=== PATIENT | female | born 1960 | race Caucasian/White ===

== ENCOUNTER → 2017-11-13 | Outpatient (CLI) | payer MEDICARE, OTHER ==
[~2017-11-13] MED LIST: CYCL10 PO; FLUO20 PO; FLUOXETINE HCL60 MG PO; LORA1 PO; NAPR500 PO; RXLORA1 PO; TELM20 PO; TRAM50 PO; ZESTORETIC 20-121 EA; [UNRECOGNIZED DRUG - REMARK]
[2017-11-14 14:06] LABS: Candida species (DNA Probe) Negative (NEGATIVE); G. vaginalis (DNA Probe) Positive (NEGATIVE); T. vaginalis (DNA Probe) Negative (NEGATIVE)
[2017-11-16 13:21] LABS: HPV Genotype 16 Not Detected (NOTDET); HPV Genotype 18 Not Detected (NOTDET)
[2017-11-25 12:24] LABS: HPV High Risk Other Not Detected (NOTDET)
== END ==
LOC: LAB SHORT 15:33 → LAB 15:33
PROVIDERS: Nurse Practitioner Family
DX: Z01.419 Encounter for gynecological examination (general) (routine) without abnormal findings (principal); N76.0 Acute vaginitis; N95.9 Unspecified menopausal and perimenopausal disorder
CPT/HCPCS: 87480; 87510; 87660

== ENCOUNTER → 2017-12-13 | Outpatient (CLI) | payer MEDICARE, OTHER ==
[2017-12-19 15:09] LABS: ANA DIRECT Positive (Negative); ANTI-CENTROMERE B ANTIBODIES <0.2 AI (0.0-0.9); ANTI-DNA (DS) AB QN 1 IU/mL (0-9); ANTI-JO-1 <0.2 AI (0.0-0.9); ANTICHROMATIN ANTIBODIES <0.2 AI (0.0-0.9); ANTIMYELOPEROXIDASE (MPO) ABS <9.0 U/mL (0.0-9.0); ANTIPROTEINASE 3 (PR-3) ABS <3.5 U/mL (0.0-3.5); ANTIRIBOSOMAL P ANTIBODIES <0.2 AI (0.0-0.9); ANTISCLERODERMA-70 ANTIBODIES <0.2 AI (0.0-0.9); ATYPICAL PANCA <1:20 titer (Neg:<1:20); CYTOPLASMIC (C-ANCA) <1:20 titer (Neg:<1:20); PERINUCLEAR (P-ANCA) <1:20 titer (Neg:<1:20); RNP ANTIBODIES 1.1 AI (0.0-0.9); SJOGREN'S ANTI-SS-A <0.2 AI (0.0-0.9); SJOGREN'S ANTI-SS-B <0.2 AI (0.0-0.9); SMITH ANTIBODIES <0.2 AI (0.0-0.9); SMITH/RNP ANTIBODIES <0.2 AI (0.0-0.9)
== END | disposition home or self-care (01) ==
LOC: LAB SHORT 15:35 → LAB 16:04
PROVIDERS: Internal Medicine
DX: N17.9 Acute kidney failure, unspecified (principal)
CPT/HCPCS: 83516; 86038; 86256

== ENCOUNTER → 2017-12-28 | Outpatient (CLI) | payer MEDICARE, OTHER ==
[2017-12-28 18:54] LABS: Albumin, Blood 3.5 g/dL (3.4-5.0); Anion Gap 10 mmol/L (6-16); Blood Urea Nitrogen 12 mg/dL (8-24); Bun/Creatinine Ratio 16.5 (12.0-20.0); CO2, Blood 20 mmol/L (21-32); Calcium, Blood 8.6 mg/dL (8.5-10.1); Chloride, Blood 108 mmol/L (98-108); Creatinine, Blood 0.73 mg/dL (0.40-1.00); Glomerular Filtration Rate >60 (60-); Glucose, Blood 63 mg/dL (70-99); Magnesium, Blood 2.1 mg/dL (1.6-2.4); Phosphorus, Blood 3.1 mg/dL (2.5-4.9); Potassium, Blood 3.9 mmol/L (3.5-5.5); Sodium, Blood 138 mmol/L (136-145)
== END | disposition home or self-care (01) ==
LOC: OLS 16:50 → LAB SHORT 16:50
PROVIDERS: Internal Medicine
DX: E87.6 Hypokalemia (principal); E61.2 Magnesium deficiency; R94.4 Abnormal results of kidney function studies
CPT/HCPCS: 36415; 80069; 83735

== ENCOUNTER → 2018-09-06 | Outpatient (CLI) | payer MEDICARE, OTHER ==
[~2018-09-06] MED LIST changes: +Pepcid40 MG PO; +TOPIRAMATE ER50 MG PO; +Zofran4 MG PO
[2018-09-06 17:32] LABS: BASOPHILS PERCENT AUTO 0 % (0-2); EOSINOPHILS ABSOLUTE AUTO 0.26 K/mm3 (0.00-0.68); EOSINOPHILS PERCENT AUTO 4 % (0-6); Hematocrit 43.7 % (33.0-51.0); IMMATURE GRAN ABSOLUTE AUTO 0.01 K/mm3 (0.00-0.10); IMMATURE GRAN PERCENT AUTO 0 % (0-1); LYMPHOCYTES ABSOLUTE AUTO 3.07 K/mm3 (0.84-5.20); LYMPHOCYTES PERCENT AUTO 50 % (21-46); MONOCYTES ABSOLUTE AUTO 0.36 K/mm3 (0.16-1.47); MONOCYTES PERCENT AUTO 6 % (4-13); Mean Corpuscular HGB 34.5 pg (26.0-34.0); Mean Corpuscular HGB Conc 34.3 g/dL (31.5-36.5); Mean Corpuscular Volume 101 fL (80-100); Mean Platelet Volume 11.1 fL (9.1-12.4); NEUTROPHILS ABSOLUTE AUTO 2.48 K/mm3 (1.96-9.15); NEUTROPHILS PERCENT AUTO 40 % (41-73); Platelet Count 209 K/mm3 (150-400); RDW Coefficient Variation 13.1 % (11.7-14.2); Red Blood Cell Count 4.35 M/mm3 (3.80-5.20); White Blood Cell Count 6.18 K/mm3 (4.00-11.30)
[2018-09-06 17:47] LABS: Alanine Aminotransfer (ALT/SGP 34 U/L (12-78); Albumin, Blood 3.7 g/dL (3.4-5.0); Albumin/Globulin Ratio 0.9 (0.8-1.8); Alk Phos 114 U/L (40-126); Anion Gap 14 mmol/L (6-16); Aspartate Aminotrans (AST/SGOT 22 U/L (12-37); Bilirubin, Total 0.2 mg/dL (0.1-1.0); Blood Urea Nitrogen 11 mg/dL (8-24); Bun/Creatinine Ratio 16.4 (12.0-20.0); CO2, Blood 23 mmol/L (21-32); Calcium, Blood 8.9 mg/dL (8.5-10.1); Chloride, Blood 105 mmol/L (98-108); Creatinine, Blood 0.67 mg/dL (0.40-1.00); Globulin, Blood 3.9 g/dL (2.2-4.0); Glomerular Filtration Rate >60 (60-); Glucose, Blood 93 mg/dL (70-99); Potassium, Blood 3.9 mmol/L (3.5-5.5); Sodium, Blood 142 mmol/L (136-145); Total Protein, Blood 7.6 g/dL (6.4-8.2)
== END | disposition home or self-care (01) ==
LOC: LAB EV 17:28 → LAB SHORT 17:28
PROVIDERS: Family Medicine
DX: R10.9 Unspecified abdominal pain (principal)
CPT/HCPCS: 80053; 83690; 85025

== ENCOUNTER 2018-09-08 05:53 | Emergency (ER) | payer MEDICARE, OTHER ==
[~2018-09-08] VITALS: Ht 154.9 cm; Wt 72.1 kg
[~2018-09-08 05:53] MED LIST changes: -Pepcid40 MG PO; -TOPIRAMATE ER50 MG PO; -Zofran4 MG PO
[2018-09-08] MEDS ORDERED: TOPIRAMATE ER50 MG PO (06:24)
[2018-09-08 07:14] LABS: BASOPHILS PERCENT AUTO 0 % (0-2); EOSINOPHILS ABSOLUTE AUTO 0.38 K/mm3 (0.00-0.68); EOSINOPHILS PERCENT AUTO 6 % (0-6); Hematocrit 45.3 % (33.0-51.0); Hemoglobin 15.1 g/dL (11.5-16.0); IMMATURE GRAN ABSOLUTE AUTO 0.01 K/mm3 (0.00-0.10); IMMATURE GRAN PERCENT AUTO 0 % (0-1); LYMPHOCYTES ABSOLUTE AUTO 3.02 K/mm3 (0.84-5.20); LYMPHOCYTES PERCENT AUTO 44 % (21-46); MONOCYTES ABSOLUTE AUTO 0.43 K/mm3 (0.16-1.47); MONOCYTES PERCENT AUTO 6 % (4-13); Mean Corpuscular HGB 33.9 pg (26.0-34.0); Mean Corpuscular HGB Conc 33.3 g/dL (31.5-36.5); Mean Corpuscular Volume 102 fL (80-100); Mean Platelet Volume 11.1 fL (9.1-12.4); NEUTROPHILS ABSOLUTE AUTO 3.07 K/mm3 (1.96-9.15); NEUTROPHILS PERCENT AUTO 45 % (41-73); Platelet Count 208 K/mm3 (150-400); RDW Coefficient Variation 13.2 % (11.7-14.2); RDW Standard Deviation 49.7 fL (35.1-46.3); Red Blood Cell Count 4.45 M/mm3 (3.80-5.20); White Blood Cell Count 6.91 K/mm3 (4.00-11.30)
[2018-09-08 07:22] LABS: Bilirubin, Urine Neg (Neg); Blood, Urine Neg (Neg); Glucose Qualitative, Urine Neg (Neg); Ketones, Urine Neg (Neg); Leukocyte Esterase, Urine Neg (Neg); Nitrite, Urine Neg (Neg); Protein, Urine Neg (Neg); Urobilinogen, Urine NORM (Normal)
[2018-09-08 07:28] LABS: Appearance, Urine Clear (Clear); Color, Urine Yellow (P-Yellow)
[2018-09-08 07:34] LABS: Alanine Aminotransfer (ALT/SGP 30 U/L (12-78); Albumin, Blood 3.8 g/dL (3.4-5.0); Alk Phos 116 U/L (50-136); Anion Gap 7 mmol/L (6-16); Aspartate Aminotrans (AST/SGOT 17 U/L (12-37); Bilirubin, Total 0.4 mg/dL (0.1-1.0); Blood Urea Nitrogen 15 mg/dL (8-24); Bun/Creatinine Ratio 21.6 (12.0-20.0); CO2, Blood 24 mmol/L (21-32); Calcium, Blood 8.5 mg/dL (8.5-10.1); Chloride, Blood 107 mmol/L (98-108); Creatinine, Blood 0.69 mg/dL (0.40-1.00); Globulin, Blood 3.9 g/dL (2.2-4.0); Glomerular Filtration Rate >60 (60-); Glucose, Blood 98 mg/dL (70-99); Potassium, Blood 3.6 mmol/L (3.5-5.5); Sodium, Blood 138 mmol/L (136-145); Total Protein, Blood 7.7 g/dL (6.4-8.2); Troponin I <0.015 ng/mL (0.000-0.040)
[2018-09-08] MEDS ORDERED: Pepcid40 MG PO (08:35)
[2018-09-08] MEDS ORDERED: Zofran4 MG PO (08:35)
== END 2018-09-08 08:50 | disposition home or self-care (01) ==
LOC: ER 05:53
PROVIDERS: Emergency Medicine
DX: K27.9 Peptic ulcer, site unspecified, unspecified as acute or chronic, without hemorrhage or perforation (principal); F17.210 Nicotine dependence, cigarettes, uncomplicated; R10.12 Left upper quadrant pain; Z79.899 Other long term (current) drug therapy
CPT/HCPCS: 36415; 80053; 81003; 83690; 84484; 85025; 93005; 93010; 96360; 99283-25; J7030

== ENCOUNTER → 2018-10-02 | Outpatient (CLI) | payer MEDICARE, OTHER ==
[~2018-10-02] MED LIST changes: +Pepcid40 MG PO; +TOPIRAMATE ER50 MG PO; +Zofran4 MG PO
== END | disposition home or self-care (01) ==
LOC: LAB EV 11:50 → LAB SHORT 11:50
DX: R53.83 Other fatigue (principal)
CPT/HCPCS: 84443

== ENCOUNTER 2021-08-24 22:42 | Emergency (ER) | payer MEDICARE, OTHER ==
[~2021-08-24] VITALS: Ht 154.9 cm; Wt 74.8 kg
[2021-08-24 23:05] LABS: BASOPHILS ABSOLUTE AUTO 0.04 K/mm3 (0.00-0.23); BASOPHILS PERCENT AUTO 0 % (0-2); EOSINOPHILS ABSOLUTE AUTO 0.31 K/mm3 (0.00-0.68); EOSINOPHILS PERCENT AUTO 3 % (0-6); Hematocrit 46.5 % (33.0-51.0); Hemoglobin 15.7 g/dL (11.5-16.0); IMMATURE GRAN ABSOLUTE AUTO 0.03 K/mm3 (0.00-0.10); IMMATURE GRAN PERCENT AUTO 0 % (0-1); LYMPHOCYTES ABSOLUTE AUTO 3.69 K/mm3 (0.84-5.20); LYMPHOCYTES PERCENT AUTO 30 % (21-46); MONOCYTES ABSOLUTE AUTO 0.72 K/mm3 (0.16-1.47); MONOCYTES PERCENT AUTO 6 % (4-13); Mean Corpuscular HGB Conc 33.8 g/dL (31.5-36.5); Mean Corpuscular Volume 101 fL (80-100); Mean Platelet Volume 10.7 fL (9.1-12.4); NEUTROPHILS ABSOLUTE AUTO 7.57 K/mm3 (1.96-9.15); NEUTROPHILS PERCENT AUTO 61 % (41-73); Platelet Count 235 K/mm3 (150-400); RDW Coefficient Variation 13.1 % (11.7-14.2); RDW Standard Deviation 48.7 fL (35.1-46.3); Red Blood Cell Count 4.62 M/mm3 (3.80-5.20); White Blood Cell Count 12.36 K/mm3 (4.00-11.30)
[2021-08-24 23:24] LABS: Alanine Aminotransfer (ALT/SGP 24 U/L (12-78); Albumin, Blood 3.5 g/dL (3.4-5.0); Albumin/Globulin Ratio 0.8 (0.8-1.8); Alk Phos 116 U/L (50-136); Anion Gap 8 mmol/L (6-16); Aspartate Aminotrans (AST/SGOT 17 U/L (12-37); Bilirubin, Total 0.3 mg/dL (0.1-1.0); Blood Urea Nitrogen 10 mg/dL (8-24); Bun/Creatinine Ratio 15.8 (12.0-20.0); CO2, Blood 27 mmol/L (21-32); Calcium, Blood 8.7 mg/dL (8.5-10.1); Chloride, Blood 104 mmol/L (98-108); Creatinine, Blood 0.63 mg/dL (0.40-1.00); Globulin, Blood 4.4 g/dL (2.2-4.0); Glomerular Filtration Rate >60 (60-); Glucose, Blood 107 mg/dL (70-99); Potassium, Blood 3.7 mmol/L (3.5-5.5); Sodium, Blood 139 mmol/L (136-145); Total Protein, Blood 7.9 g/dL (6.4-8.2); Troponin I <0.015 ng/mL (0.000-0.040)
[2021-08-25 00:47] LABS: Influenza A, PCR NEGATIVE (NEGATIVE); Influenza B, PCR NEGATIVE (NEGATIVE); Resp Syncytial Virus, PCR NEGATIVE (NEGATIVE); SARS-Cov-2 (COVID-19) PCR, MMC NEGATIVE (NEGATIVE)
== END 2021-08-25 01:53 | disposition home or self-care (01) ==
LOC: ER 22:42
PROVIDERS: Physician Assistant; Student in an Organized Health Care Education/Training Program
DX: R07.89 Other chest pain (principal); M79.622 Pain in left upper arm; F17.210 Nicotine dependence, cigarettes, uncomplicated; Z20.822 Contact with and (suspected) exposure to COVID-19
CPT/HCPCS: 0241U; 36415; 71046; 80053; 84484; 85025; 93005; 93010; 99284-25; A9270; J1885

== ENCOUNTER → 2023-08-20 | Outpatient (CLI) | payer OTHER | LOC: LAB SHORT 17:23 → LAB 17:23 | DX: L02.01 Cutaneous abscess of face (principal) | CPT/HCPCS: 87070; 87075; 87076; 87205 ==

== ENCOUNTER 2024-05-01 12:16 | Inpatient (IN) | payer OTHER ==
[~2024-05-01] VITALS: Ht 154.9 cm; Wt 81.0 kg
[2024-05-01 13:04] LABS: BASOPHILS ABSOLUTE AUTO 0.03 K/mm3 (0.00-0.23); BASOPHILS PERCENT AUTO 1 % (0-2); EOSINOPHILS ABSOLUTE AUTO 0.62 K/mm3 (0.00-0.68); EOSINOPHILS PERCENT AUTO 10 % (0-6); Hematocrit 44.5 % (33.0-51.0); Hemoglobin 15.1 g/dL (11.5-16.0); IMMATURE GRAN ABSOLUTE AUTO 0.02 K/mm3 (0.00-0.10); IMMATURE GRAN PERCENT AUTO 0 % (0-1); LYMPHOCYTES PERCENT AUTO 39 % (21-46); MONOCYTES ABSOLUTE AUTO 0.35 K/mm3 (0.16-1.47); MONOCYTES PERCENT AUTO 5 % (4-13); Mean Corpuscular HGB Conc 33.9 g/dL (31.5-36.5); Mean Corpuscular Volume 103 fL (80-100); Mean Platelet Volume 11.1 fL (9.1-12.4); NEUTROPHILS ABSOLUTE AUTO 2.91 K/mm3 (1.96-9.15); NEUTROPHILS PERCENT AUTO 45 % (41-73); Platelet Count 205 K/mm3 (150-400); RDW Coefficient Variation 13.2 % (11.7-14.2); Red Blood Cell Count 4.32 M/mm3 (3.80-5.20); White Blood Cell Count 6.43 K/mm3 (4.00-11.30)
[2024-05-01 13:32] LABS: Albumin, Blood 3.7 g/dL (3.4-5.0); Bilirubin, Total 0.5 mg/dL (0.1-1.0); Bun/Creatinine Ratio 9.9 (12.0-20.0); Calcium, Blood 8.7 mg/dL (8.5-10.1); Creatinine, Blood 0.71 mg/dL (0.40-1.00); Globulin, Blood 3.7 g/dL (2.2-4.0); Potassium, Blood 3.9 mmol/L (3.5-5.5); Total Protein, Blood 7.4 g/dL (6.4-8.2)
[2024-05-01] MEDS ORDERED: Aspirin 325 MG Tab PO ONE (17:25)
[2024-05-01 19:57] LABS: Anti-Xa UFH, PHA Monitoring <0.10 IU/mL; International Normalized Ratio 0.97; Prothrombin Time Results 10.4 Sec (9.7-11.5)
[2024-05-01] MEDS ORDERED: NS 1,000 ML IV SCH (20:35)
[2024-05-01] MEDS ORDERED: Acetaminophen 325 MG TABLET PO PRN (20:35)
[2024-05-01] MEDS ORDERED: Ondansetron HCl 2 MG / ML 2ML Vial IV PRN (20:40)
[2024-05-01] MEDS ORDERED: HydrALAZINE HCl 20 MG / ML 1ML Vial IV PRN (20:40)
[2024-05-01] MEDS ORDERED: Heparin Sodium,Porcine/0.5 NS 500 ML IV SCH (20:45)
[2024-05-01] MEDS ORDERED: Heparin Sodium 5000 Units/ML 1ML MDV IV ONE (20:45)
[2024-05-01] MEDS ORDERED: Metoprolol Succinate 25 MG TABCR PO SCH (21:00)
[2024-05-01 21:32] VITALS: BP 182/66
[2024-05-01] MEDS ORDERED: OMEP20ER PO (21:32)
[2024-05-01] MEDS ORDERED: Adipex-P37.5 M1 PO (21:50)
[2024-05-01 22:26] VITALS: BP 156/67
[2024-05-01 23:20] VITALS: BP 101/70
[2024-05-02] VITALS (14 sets, daily range): BP systolic 104–156; BP diastolic 55–83
[2024-05-02] MEDS ORDERED: Calcium Carbonate 500 MG Tab Chew PO PRN (02:50)
[2024-05-02] MEDS ORDERED: Omeprazole 20 MG CapCR PO SCH (03:00)
[2024-05-02 04:17] LABS: Hematocrit 39.8 % (33.0-51.0); Hemoglobin 13.5 g/dL (11.5-16.0); Mean Corpuscular HGB 34.8 pg (26.0-34.0); Mean Corpuscular HGB Conc 33.9 g/dL (31.5-36.5); Mean Corpuscular Volume 103 fL (80-100); Mean Platelet Volume 11.4 fL (9.1-12.4); Platelet Count 199 K/mm3 (150-400); RDW Coefficient Variation 13.5 % (11.7-14.2); RDW Standard Deviation 51.3 fL (35.1-46.3); Red Blood Cell Count 3.88 M/mm3 (3.80-5.20)
[2024-05-02 04:50] LABS: Anion Gap 9 mmol/L (3-11); Blood Urea Nitrogen 14 mg/dL (8-24); Bun/Creatinine Ratio 19.4 (12.0-20.0); CHOL/HDL RATIO 4.5; CO2, Blood 24 mmol/L (21-32); Calcium, Blood 8.2 mg/dL (8.5-10.1); Chloride, Blood 110 mmol/L (98-108); Cholesterol 237 mg/dL (50-200); Creatinine, Blood 0.72 mg/dL (0.40-1.00); Glomerular Filtration Rate 95 (60-); Glucose, Blood 104 mg/dL (70-99); HDL Cholesterol 53 mg/dL (>39); LDL/HDL RATIO 2.9; Low Density Lipoprotein Chol 152 mg/dL (0-110); Potassium, Blood 3.6 mmol/L (3.5-5.5); Sodium, Blood 139 mmol/L (136-145); Triglycerides 162 mg/dL (30-160); Very Low Density Lipoprot Chol 32 mg/dL (6-32)
--- NOTE | 2024-05-02 04:55 | NUR ---
SHIFT SUMMARY PT REMAINS ALERT AND ORIENTED. HR HAS BEEN NSR. BP STABLE. O2 SATS REMAIN ABOVE 90% ON RA. PT HAS DENIED CHEST PAIN SINCE ARRIVAL TO UNIT. PT COMPLAINED OF HEART BURN AND REQUESTED HER HOME DOSE OF PRILOSEC. PT MEDICATED ORDERED. PT ABLE TO REPOSITION HERSELF INDEPENDENTLY IN THE BED. PT ONLY VOIDED ONCE WHEN SHE ARRIVED TO UNIT. PT HAS CONTINUED TO FEEL THE URGE TO URINATE, BUT UNABLE TO VOID. BLADDER SCAN DONE AND ONLY 4ML RECORDED. HEP GTT AND NS INFUSING PER ORDERS. PT HAS BEEN NPO SINCE MIDNIGHT. AWAITING CARDIOLOGY CONSULT
[2024-05-02] MEDS ORDERED: Dose Adjust by Pharmacy XX STA ×2 (05:04→10:50)
[2024-05-02] MEDS ORDERED: Heparin Sodium 5000 Units/ML 1ML MDV IV ONE (05:05)
[2024-05-02] MEDS ORDERED: Aspirin 81 MG Chew PO SCH (09:00)
[2024-05-02] MEDS ORDERED: Nicotine 7 MG PATCH TOP SCH (09:00)
[2024-05-02] MEDS ORDERED: Atorvastatin 40 MG Tab PO SCH (09:00)
--- NOTE | 2024-05-02 10:01 | NUR ---
MORNING SUMMARY THE PT IS A&OX4, CALLS APPROPRAITELY, IND IN THE ROOM, AND MAKES HER NEEDS KNOWN. SHE HAD AN ECHO THIS MORNING AND IS AWAITING FOR CARDIOLOGY TO SEE HER. SHE IS NPO AT THIS TIME PER DR. LAU. SHE REMAINS ON A HEP GTT AND IT IS BEING MANAGED PER PHARMACY. SHE IS ON RA, AND DENIES SOB. ON TELE SHE IS SR 50'S AND SHE DENIES ANY CHEST PAIN TODAY. NO ACUTE EVENTS. SEE NOTES FOR ANY UPDATES.
[2024-05-02] MEDS ORDERED: Heparin Sodium 1000 Units/ML 10ML MDV ONE ×2 (11:03→11:59)
[2024-05-02] MEDS ORDERED: NiCARdipine HCL 1,000 MCG/5 ML SYR ONE (11:04)
[2024-05-02] MEDS ORDERED: NS 250 ML IV ONE ×2 (11:04→11:59)
[2024-05-02] MEDS ORDERED: NS 1,000 ML IV ONE ×2 (11:04→11:40)
[2024-05-02] MEDS ORDERED: Nitroglycerin 2 MG/20 ML BTL ONE (11:04)
[2024-05-02] MEDS ORDERED: Midazolam HCl 1MG / ML 2ML Vial ONE ×2 (11:40→12:26)
[2024-05-02] MEDS ORDERED: FentaNYL Citrate 50 MCG/ML 2 ML Injection ONE ×2 (11:40→12:50)
[2024-05-02] MEDS ORDERED: HydrALAZINE HCl 20 MG / ML 1ML Vial ONE (12:32)
[2024-05-02] MEDS ORDERED: NS 450 ML IV SCH (13:30)
[2024-05-02] MEDS ORDERED: AmLODIPine Besylate 5 MG Tab PO SCH (13:30)
--- NOTE | 2024-05-02 13:51 | NUR ---
PT ARRIVED BACK TO PCU 14 POST ANGIOGRAM AROUND 1320. THE PT IS VERY DROWSY, AND STATES THAT SHE FEELS CONFUSED BECUASE OF THE MEDICATIONS. SHE STATED SHE WANTS TO SLEEP THEM OFF. SHE WAS REPORTING NAUSEA AND WAS MEDICATED WITH ZOFRAN PER EMAR. THE PT AND HER WERE EDUCATED TO HIT THE CALL LIGHT AND LET STAFF KNOW IF THE NAUSEA COMES BACK. ON TELE SHE IS SR/SB 50'S-60'S, BP STABLE AND SHE WAS MEDICATED PER EMAR WITH NORVASC. SHE HAS A RIGHT RADIAL SITE THAT HAS A TR BAND WITH 13CC OF AIR IN IT. THE SITE IS W/O HEMATOMA, BLEEDING, OOZING OR BRUISING. CAP REFILL <3SEC WITH DISTAL FINGERS. THE PT DENIES N/T IN DISTAL FINGERS. THE PT'S STENT CARD WAS GIVEN TO HER PARTNER COLIN BY JONO ENRIQUE. SEQUENCE VITALS RUNNING PER PROTOCOL. SEE NOTES FOR ANY UPDATES.
[2024-05-02] MEDS ORDERED: Prochlorperazine Edisylate 10 mg Vial IV PRN (14:25)
--- NOTE | 2024-05-02 17:44 | NUR ---
END OF SHIFT UPDATE SUMMARY PT DIANNEINS A&OX4, CALLS APPROPRAITELY, AND MAKES HER NEEDS KNOWN. SHE IS A MIN ASSIST FOR TRANSFER D/T POST ANGIO W/ INTERVENTION THIS AFTERNOON. NORMALLY SHE IS IND. SHE HAD TWO STENTS PLACED IN THE ANGIO. SEE PREVIOUS NOTE FOR DETAILS WHEN RETURNING TO THE ROOM. HER TR BAND IS STILL INTACT WITH OUT ANY AIR LEFT IN THE BAND. THE BAND CAN BE REMOVED AT 1844 AND REPLACED WITH TEGADERM ONCE CLEANED W/ CHG. IN THE RECOVERY PERIOD WE HAD TO HOLD PRESSURE A FEW DIFFERENT TIMES D/T HEMATOMA ABOVE THE INSERTION SITE. SOME BRUISING NOTED, AND A LINE WAS DRAWN AROUND THE BRUISING TO ASSESS FOR ANY GROWTH. THE PT HAS WOKEN UP MORE AND DENIES NAUSEA, OR DIZZINESS. SHE CONTINUES TO DENY ANY ANGINA OR CHEST PRESSURE. SEE NOTES FOR ANY UPDATES.
--- NOTE | 2024-05-02 18:49 | NUR ---
TR BAND FULLY RECOVERED.
[2024-05-03 04:18] LABS: Hematocrit 38.9 % (33.0-51.0); Hemoglobin 13.2 g/dL (11.5-16.0); Mean Corpuscular HGB 34.7 pg (26.0-34.0); Mean Corpuscular HGB Conc 33.9 g/dL (31.5-36.5); Mean Corpuscular Volume 102 fL (80-100); Mean Platelet Volume 11.7 fL (9.1-12.4); Platelet Count 195 K/mm3 (150-400); RDW Coefficient Variation 13.6 % (11.7-14.2); RDW Standard Deviation 51.1 fL (35.1-46.3); White Blood Cell Count 7.79 K/mm3 (4.00-11.30)
[2024-05-03 04:46] LABS: Bun/Creatinine Ratio 14.9 (12.0-20.0); Calcium, Blood 8.9 mg/dL (8.5-10.1); Creatinine, Blood 0.6 mg/dL (0.40-1.00); Potassium, Blood 3.5 mmol/L (3.5-5.5)
[2024-05-03 05:15] VITALS: BP 142/61
--- NOTE | 2024-05-03 06:21 | NUR ---
SHIFT SUMMARY PATIENT ALERT, ORIENTED x4. ABLE TO MAKE NEEDS KNOWN TO STAFF. BP STABLE. ON CONTINUOS BUILDING SURVEYOR, NO EVENTS NOTED BY INDUSTRIAL TRAINER. REMAINS ON RA WITH SPO2 >90%. DENIED CHEST PAIN DURING THE NIGHT. ARM BOARD IN PLACE TO RIGHT FOREARM, OPSITE C/D/I. SMALL HEMATOMA AND TENDERNESS NOTED, OTHERWISE NO CHANGES TO INCISION. PATIENT AMBULATING INTO BATHROOM SBA, ADEQUATE OUTPUT DURING THE NIGHT. NO OTHER CHANGES, WILL REPORT TO DAY SHIFT RN.
[2024-05-03 07:41] VITALS: BP 136/51
[2024-05-03] MEDS ORDERED: Aspirin 81 MG TabEC PO SCH (09:00)
[2024-05-03] MEDS ORDERED: AMLO5 PO (10:41)
[2024-05-03] MEDS ORDERED: Lipitor80 MG PO (10:42)
[2024-05-03] MEDS ORDERED: NICO21TP TOP (10:43)
[2024-05-03] MEDS ORDERED: METO25ER PO (10:43)
[2024-05-03] MEDS ORDERED: PRASUGREL HCL10 MG PO (10:44)
[2024-05-03 11:05] VITALS: BP 133/88
--- NOTE | 2024-05-03 12:26 | NUR ---
D/C SUMMARY PT D/C'D AT 1206 I WENT OVER D/C INSTRUCTIONS WITH THE PT AND ANSWERED ALL OF THE QUESTIONS SHE HAD. HER MEDICATIONS WERE FAXED TO [facility]. THE PT HAD ALL OF HER IV'S TAKEN OUT W/O ANY ISSUES. HER RIGHT WRIST ANGIO SITE HAS A TEGADERM INTACT, AND THEIR IS BRUISING AND TENDERNESS NOTED. DR. LAU STATED THAT SHE NEEDS TO REST IT FOR THREE DAYS. NO FURTHER NOTES.
== END 2024-05-03 12:06 | disposition home or self-care (01) | DRG 322 ==
LOC: ER 12:16 → PCU 12:17
PROVIDERS: Internal Medicine Cardiovascular Disease; Nurse Practitioner Acute Care; Physician Assistant; Student in an Organized Health Care Education/Training Program; ADMIT Internal Medicine
PROC: 027135Z Dilation of Coronary Artery, Two Arteries with Two Drug-eluting Intraluminal Devices, Percutaneous Approach (ICD-10-PCS; principal; 2024-05-02)
PROC: 4A023N7 Measurement of Cardiac Sampling and Pressure, Left Heart, Percutaneous Approach (ICD-10-PCS; 2024-05-02)
PROC: B2111ZZ Fluoroscopy of Multiple Coronary Arteries using Low Osmolar Contrast (ICD-10-PCS; 2024-05-02)
PROC: B241ZZ3 Ultrasonography of Multiple Coronary Arteries, Intravascular (ICD-10-PCS; 2024-05-02)
DX: I21.4 Non-ST elevation (NSTEMI) myocardial infarction (principal); I20.0 Unstable angina; F17.210 Nicotine dependence, cigarettes, uncomplicated; I10 Essential (primary) hypertension; J44.9 Chronic obstructive pulmonary disease, unspecified; K21.9 Gastro-esophageal reflux disease without esophagitis; E78.2 Mixed hyperlipidemia; E66.01 Morbid (severe) obesity due to excess calories; F32.A Depression, unspecified; Z79.899 Other long term (current) drug therapy; Z98.51 Tubal ligation status; Z68.32 Body mass index [BMI] 32.0-32.9, adult
CPT/HCPCS: 36415; 71046; 76937; 80048; 80053; 80061; 83036; 83880; 84484; 85025; 85027; 85347; 85379; 85520; 85610; 85730; 93005; 93010; 93306; 93458; 96365; 96366; 99152; 99153; 99285-25; A9270; C1725; C1769; C1874; C1887; C1894; C9600; C9601; G0378; J0360; J1644; J2250; J2405; J3010; J7030; J7050; Q9967

== ENCOUNTER 2024-05-20 04:13 | Emergency (ER) | payer OTHER ==
[~2024-05-20] VITALS: Ht 154.9 cm; Wt 80.7 kg
[~2024-05-20 04:13] MED LIST changes: +AMLO5 PO; +Adipex-P37.5 M1 PO; +Lipitor80 MG PO; +METO25ER PO; +NICO21TP TOP; +OMEP20ER PO; +PRASUGREL HCL10 MG PO
[2024-05-20 04:59] VITALS: BP 144/95
== END 2024-05-20 06:49 | disposition home or self-care (01) ==
LOC: ER 04:13
DX: S80.12XA Contusion of left lower leg, initial encounter (principal); S80.11XA Contusion of right lower leg, initial encounter; S60.811A Abrasion of right wrist, initial encounter; T45.525A Adverse effect of antithrombotic drugs, initial encounter; F17.210 Nicotine dependence, cigarettes, uncomplicated; I10 Essential (primary) hypertension; I25.2 Old myocardial infarction; K21.9 Gastro-esophageal reflux disease without esophagitis; Z79.899 Other long term (current) drug therapy
CPT/HCPCS: 99282

== ENCOUNTER 2024-08-28 05:02 | Emergency (ER) | payer OTHER ==
[~2024-08-28] VITALS: Ht 154.9 cm; Wt 89.8 kg
[2024-08-28 05:46] LABS: BASOPHILS ABSOLUTE AUTO 0.02 K/mm3 (0.00-0.23); BASOPHILS PERCENT AUTO 0 % (0-2); EOSINOPHILS ABSOLUTE AUTO 0.12 K/mm3 (0.00-0.68); EOSINOPHILS PERCENT AUTO 2 % (0-6); Hematocrit 37.7 % (33.0-51.0); IMMATURE GRAN ABSOLUTE AUTO 0.01 K/mm3 (0.00-0.10); IMMATURE GRAN PERCENT AUTO 0 % (0-1); LYMPHOCYTES ABSOLUTE AUTO 0.89 K/mm3 (0.84-5.20); LYMPHOCYTES PERCENT AUTO 14 % (21-46); MONOCYTES ABSOLUTE AUTO 0.43 K/mm3 (0.16-1.47); MONOCYTES PERCENT AUTO 7 % (4-13); Mean Corpuscular HGB 34.8 pg (26.0-34.0); Mean Corpuscular HGB Conc 34.5 g/dL (31.5-36.5); Mean Corpuscular Volume 101 fL (80-100); Mean Platelet Volume 10.4 fL (9.1-12.4); NEUTROPHILS ABSOLUTE AUTO 4.79 K/mm3 (1.96-9.15); NEUTROPHILS PERCENT AUTO 77 % (41-73); Platelet Count 224 K/mm3 (150-400); RDW Coefficient Variation 12.7 % (11.7-14.2); RDW Standard Deviation 47.3 fL (35.1-46.3); Red Blood Cell Count 3.74 M/mm3 (3.80-5.20); White Blood Cell Count 6.26 K/mm3 (4.00-11.30)
[2024-08-28 06:07] LABS: Albumin, Blood 3.4 g/dL (3.4-5.0); Albumin/Globulin Ratio 0.8 (0.8-1.8); Bilirubin, Total 0.6 mg/dL (0.1-1.0); Calcium, Blood 8.3 mg/dL (8.5-10.1); Creatinine, Blood 0.69 mg/dL (0.40-1.00); Globulin, Blood 4.2 g/dL (2.2-4.0); Potassium, Blood 3.5 mmol/L (3.5-5.5); Total Protein, Blood 7.6 g/dL (6.4-8.2)
[2024-08-28] MEDS ORDERED: Ketorolac Tromethamine 30mg Vial IV ONE (06:10)
[2024-08-28] MEDS ORDERED: PredniSONE 20 MG Tab PO ONE (06:40)
[2024-08-28] MEDS ORDERED: Ipratropium/Albuterol SulF 2.5-0.5MG/3 ML Amp INH ONE (06:40)
[2024-08-28 06:50] LABS: CORONAVIRUS COVID-19 AG Negative (NEGATIVE); INFLUENZA A AG Negative (NEGATIVE); INFLUENZA B AG Negative (NEGATIVE)
[2024-08-28 07:22] VITALS: BP 138/61
[2024-08-28] MEDS ORDERED: PRED20 PO (08:12)
[2024-08-28] MEDS ORDERED: ALBU90OI INH (08:12)
[2024-08-28] MEDS ORDERED: ONDA4ODT MM (08:12)
== END 2024-08-28 08:24 | disposition home or self-care (01) ==
LOC: ER 05:02
PROVIDERS: Emergency Medicine
DX: J20.9 Acute bronchitis, unspecified (principal); B34.9 Viral infection, unspecified; K21.9 Gastro-esophageal reflux disease without esophagitis; I25.2 Old myocardial infarction; Z87.891 Personal history of nicotine dependence; Z79.899 Other long term (current) drug therapy; Z91.013 Allergy to seafood
CPT/HCPCS: 71046; 80053; 84484; 85025; 87428-QW; 93005; 93010; 94640; 94664; 96374; 99285-25; J1885; J7512